=== PATIENT | male | born 1970 | race African-American/Black ===

== ENCOUNTER 2023-05-13 12:19 | Emergency (ER) | payer OTHER ==
[2023-05-13 12:32] VITALS: BP 132/80; PULSE 86; RESP 20; TEMP 101.4; BMI 27.2
[2023-05-13] MEDS ORDERED: ACYCLOVIR 1000 MG (50MG/ML) VIAL IVPB ONE ×2 (13:30→13:52)
[2023-05-13] MEDS ORDERED: ACETAMINOPHEN 1000 MG/100 ML BAG IVPB ONE (13:31)
[2023-05-13] MEDS ORDERED: morphine CARPU-JECT 8 MG/1 ML DISP.SYRIN IVPUSH ONE (13:45)
[2023-05-13] MEDS ORDERED: ACETAMINOPHEN INJECTION 100 ML IVPB ONE (13:54)
[2023-05-13] MEDS ORDERED: morphine SULFATE 4 MG/ML VIAL ONE (13:54)
[2023-05-13] MEDS ORDERED: WATER IVPB ONE (14:30)
[2023-05-13] MEDS ORDERED: DEXTROSE 5% IVPB ONE (14:30)
[2023-05-13] MEDS ORDERED: ACYCLOVIR SODIUM IVPB ONE (14:30)
[2023-05-13 14:34] LABS: BASO % 0.7 % (0-2.0); EOS % 0.1 % (0-4.5); HEMATOCRIT 43.8 % (35.4-49); HEMOGLOBIN 15.2 GM/dL (11.7-16.9); LYMPH % 23.4 % (8-40); MCH 30.6 pg (25.7-33.7); MCHC 34.6 g/dl (32.0-35.9); MEAN CELL VOLUME 88.3 fl (80-96); MEAN PLT VOLUME 7.3 fl (7.5-11.1); MONO % 12.3 % (3.8-10.2); NEUT % 63.5 % (42.8-82.8); PLATELET COUNT 251 10^3/uL (134-434); RBC 4.97 M/mm3 (4.00-5.60); RDW 13.2 % (11.9-15.9)
[2023-05-13 14:53] LABS: POTASSIUM 4.4 mmol/L (3.5-5.1)
[2023-05-13 15:00] LABS: BILIRUBIN,TOTAL 0.5 mg/dL (0.2-1)
[2023-05-13 15:37] LABS: CALCIUM 9.3 mg/dL (8.5-10.1)
[2023-05-13 15:41] LABS: CREATININE 1.5 mg/dL (0.55-1.3)
[2023-05-13 15:43] LABS: TOT PROT 8.4 g/dl (6.4-8.2)
== END 2023-05-13 14:35 | disposition short-term general hospital (02) ==
LOC: JER 12:19
PROC: 3E033NZ Introduction of Analgesics, Hypnotics, Sedatives into Peripheral Vein, Percutaneous Approach (ICD-10-PCS; principal; 2023-05-13)
PROC: 3E033GC Introduction of Other Therapeutic Substance into Peripheral Vein, Percutaneous Approach (ICD-10-PCS; 2023-05-13)
DX: R21 Rash and other nonspecific skin eruption (principal); B02.39 Other herpes zoster eye disease
CPT/HCPCS: 36415; 80053; 85025; 99285-25